=== PATIENT | male | born 1970 | race Caucasian/White ===

== ENCOUNTER 2023-11-04 12:12 | Emergency (ER) | payer OTHER, SELFPAY ==
--- NOTE | ~2023-11-04 | XR_ITS ---
EXAMINATION: XR chest 2V DATE: 11/04/2023 16:06 INDICATION: Intermittent cough and abdominal pain TECHNIQUE: PA and lateral views of the chest were obtained. COMPARISON: None FINDINGS: Mild linear opacities consistent with discoid atelectasis at the bilateral lung bases. No other airsp netta opacities, pulmonary edema, pleural effusion or pneumothorax. The cardiomediastinal silhouette is normal. There are bridging osteophytes at multiple levels consistent with diffuse idiopathic skeleta l hyperostosis (DISH). IMPRESSION: 1. Mild discoid atelectasis at the bilateral lung bases. Reviewed, dictated and finalized at location A. 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
--- NOTE | ~2023-11-04 | CT_ITS ---
EXAMINATION: CT abdomen pelvis w con DATE: 11/04/2023 17:35 INDICATION: Generalized abdominal pain TECHNIQUE: Computed tomography (CT) of the abdomen and pelvis was performed with 100 mL Omnipaque-350 intravenous contrast. Automated exposure control and iterative reconstruction technique were employe d. The dose-length product was 778.89 mGy-cm. COMPARISON: None FINDINGS: Mild dependent atelectasis in the bilateral lower lobes. Heart size is normal. No pericardial or pleu ral effusion. Small sliding-type hiatal hernia. There are several subcentimeter low-attenuation hepat ic cyst. Gallbladder, spleen, pancreas and bilateral adrenal glands are normal. Bilateral nonobstruct ing nephrolithiasis 2 left renal stones measuring 6 normal. 2 mm and a 4 mm stone in the right kidney . No ureteral stones or hydronephrosis. There are bilateral renal cysts, the largest in the right kid len measuring 1.9 cm. Bladder is normal. Small bilateral fat-containing inguinal hernias, right great er than left. Bowels including the appendix are normal. No free intraperitoneal gas or fluid. No path ologically enlarged abdominal or pelvic lymphadenopathy. Mild thoracic spondylosis with mild anterior wedging at T7 and T8 and with bridging osteophytes at multiple levels consistent with diffuse idiopa thic skeletal hyperostosis (DISH). IMPRESSION: 1. No acute intra-abdominal/pelvic process. 2. Bilateral nonobstructing nephrolithiasis. 3. Small sliding-type hiatal hernia. 4. Small bilateral fat-containing inguinal hernias. Reviewed, dictated and finalized at location A. 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
[2023-11-04 12:16] VITALS: BP 129/83; PULSE 99; RESP 16; TEMP 37; O2SAT 99
[2023-11-04 12:34] LABS: Basophils Absolute Auto 0.1 K/mm3 (0.0-0.1); Basophils Percent Auto 0.8 % (0.2-1.2); Eosinophils Absolute Auto 0.2 K/mm3 (0-0.3); Eosinophils Percent Auto 2.7 % (0-4.4); Hematocrit 47.8 % (42.0-52.0); Hemoglobin 15.8 g/dL (14.0-18.0); Immature Granulocyte Absolute 0.03 K/mm3 (0.00-0.031); Immature Granulocyte Percent A 0.4 % (0-0.5); Lymphocytes Absolute Auto 1.82 K/mm3 (0.9-3.2); Lymphocytes Percent Auto 24.6 % (18.3-44.2); Mean Corpuscular HGB Conc 33.1 g/dl (32-36); Mean Corpuscular Hemoglobin 30.5 pg (26-34); Mean Corpuscular Volume 92.3 fl (80-100); Monocytes Absolute Auto 0.9 K/mm3 (0.1-0.6); Monocytes Percent Auto 11.5 % (2.6-8.5); Neutrophils Absolute Auto 4.4 K/mm3 (1.3-6.7); Platelet Count Result 266 k/mm3 (150-375); Red Blood Count 5.18 M/mm3 (4.6-6.20); Red Cell Distribution Width 12.3 % (11.5-14.5); White Blood Count 7.4 K/mm3 (4.5-10.0)
[2023-11-04 12:50] LABS: Alanine Aminotransferase 34 U/L (6-50); Albumin Level 4.7 g/dL (3.5-5.1); Alkaline Phosphatase 93 U/L (38-126); Anion Gap 6 mmol/L (8-16); Aspartate Amino Transferase 29 U/L (17-59); Bilirubin,Total 0.7 mg/dL (0.2-1.3); Blood Urea Nitrogen 17 mg/dL (9-20); Calcium 9.4 mg/dL (8.4-10.2); Carbon Dioxide 27 mmol/L (22-30); Chloride 104 mmol/L (98-107); Estimated CRCL calculation 76 ml/min; Estimated Glomerular Filt Rate > 60; Glucose 106 mg/dL (65-110); Lipase 88 U/L (23-300); Potassium 4.2 mmol/L (3.4-5.0); Sodium 137 mmol/L (137-145)
[2023-11-04 13:10] LABS: Influenza A QL RT-PCR Negative (Negative); Influenza B QL RT-PCR Negative (Negative); RSV RNA, RT-PCR Negative (Negative); SARS-CoV-2 RNA PCR Negative (Negative)
[2023-11-04 14:30] LABS: Appearance Urine Clear (Clear); Bacteria Urine Rare /hpf; Bilirubin Urine Negative (Negative); Blood Urine Negative (Negative); Color Urine Yellow (Yellow); Glucose Urine UA Negative (Negative); Ketones Urine Negative (Negative); Leukocyte Esterase Ur Trace LEU/UL (Negative); Nitrate Urine Negative (Negative); Non Pathogenic Casts 0-2; Protein Urine Negative (Negative); RBC Urine 0-2 /hpf (0-2); Specific Grav Ur 1.022 (1.001-1.035); Squamous Epithelial Cell Urine None seen /hpf (Few); Urobilinogen Urine 0.2 mg/dL (<2.0); pH Urine 5.5 (5.0-9.0)
[2023-11-04 14:35] LABS: Add Urine Microscopic? YES
--- NOTE | 2023-11-04 15:48 | ED.URI ---
HPI - URI/Sore Throat General Chief Complaint: Upper Respiratory Infection Stated Complaint: cough and abd pain Time Seen by Provider: 11/04/23 15:29 History of Present Illness HPI Narrative: 53-year-old male presented to the emergency department for multiple medical complaints. Patient states he has had a dry cough for 1 month. States the symptoms started with nasal congestion and now moved to his lungs. He is reporting chest congestion and cough that is worse at night. He denies fever, shortness of breath. He is also reporting generalized abdominal pain that is ?sharp? when he pokes on his stomach for the past 8 months. States he has had a weak urinary stream for the past multiple months with intermittent dysuria. Will feel like he has to urinate and he tries to go and a small amount comes out. States he has not seen his PCP and multiple years. Denies fever, chest pain. Last BM was yesterday and soft. Reports intermittent diarrhea. Related Data Allergies Allergy/AdvReac Type Severity Reaction Status Date / Time No Known Allergies Allergy Verified 11/04/23 12:15 Review of Systems Review of Systems: CONSTITUTIONAL: Denies fever, chills, or sweats. EYES: Denies visual changes, redness, or discharge. ENT: Denies rhinorrhea, congestion, sore throat, or otalgia. CARDIOVASCULAR: Denies chest pain, palpitations, or edema. RESPIRATORY: See HPI GASTROINTESTINAL: See HPI GENITOURINARY: See HPI SKIN: Denies rash or itching. MUSCULOSKELETAL: Denies back pain, joint pain, or myalgia. NEUROLOGIC: Denies headache, numbness, or weakness. PSYCHIATRIC: Denies anxiety or depression. Exam Narrative: GENERAL: Well-appearing, well-nourished, and in no acute distress. Patient resting comfortably in exam bed. He is satting 99% on room air and speaking in full sentences. HEAD: Normocephalic, atraumatic. EYES: PERRLA and EOMI. ENT: Nares clear, no rhinorrhea or epistaxis. Mucous membranes moist. Posterior pharynx without edema or erythema. Uvula midline. No tonsillar hypertrophy or exudates. Bilateral TMs are curran nonbulging. NECK: Supple. CHEST: Clear to auscultation. No respiratory distress. HEART: Regular rate and rhythm. No murmur heard. Normal peripheral pulses. ABDOMEN: Normoactive bowel sounds. Abdomen soft with generalized tenderness, worse in the right lower quadrant. No guarding, rebound or rigidity. No CVA tenderness. Bilateral inguinal hernias that are nontender to palpation and without overlying skin changes. EXTREMITIES: Normal range of motion. No edema. SKIN: Warm, dry, no rash. NEURO: No focal deficits. Alert and oriented x3 Course Vital Signs Vital signs: Vital Signs Temperature 98.6 F 11/04/23 12:16 Pulse Rate 99 11/04/23 12:16 Respiratory Rate 16 11/04/23 12:16 Blood Pressure 129/83 11/04/23 12:16 Pulse Oximetry 99 11/04/23 12:16 Temperature 98.6 F 11/04/23 12:16 Pulse Rate 99 11/04/23 12:16 Respiratory Rate 16 11/04/23 12:16 Blood Pressure 129/83 11/04/23 12:16 Pulse Oximetry 99 11/04/23 12:16 Oxygen Delivery Room Air 11/04/23 15:30 MDM - URI/Sore Throat MDM Narrative Medical decision making narrative: 53-year-old male presents to the emergency depart for multiple medical complaints. See HPI for further history. Vitals are stable he is afebrile. Satting 99% on room air. Exam significant for the above. CBC is without leukocytosis. Chemistries unremarkable. COVID, flu and RSV are negative. Chest x-ray shows mild discoid atelectasis in bilateral lung bases, otherwise no acute cardiopulmonary abnormality. CT abdomen pelvis reveals no acute intra abdominal or pelvic process. There is bilateral nonobstructing nephrolithiasis, small sliding hiatal hernia and small bilateral fat containing inguinal hernias. UA with trace leuk esterase and 11-20 wbc's. He is reporting intermittent dysuria but denies rectal or perineal pain concerning for prostatitis.
[2023-11-04 18:51] VITALS: BP 140/91; PULSE 73; RESP 18; TEMP 36.8; O2SAT 95
== END 2023-11-04 18:53 | disposition home or self-care (01) ==
PROVIDERS: Emergency Medicine; Emergency Provider Physician Assistant
DX: R10.84 Generalized abdominal pain (principal); N20.0 Calculus of kidney; R82.998 Other abnormal findings in urine; Z20.822 Contact with and (suspected) exposure to COVID-19; K40.00 Bilateral inguinal hernia, with obstruction, without gangrene, not specified as recurrent; R05.1 Acute cough
CPT/HCPCS: 36415; 71046; 74177; 80053; 81001; 83690; 85025; 87086; 87181; 87637; 99284; Q9967